=== PATIENT | female | born 1975 | race Caucasian/White ===

== ENCOUNTER 2016-09-16 23:50 | Emergency (ER) | payer OTHER, BC ==
[2016-09-17 00:38] VITALS: BP 130/87; PULSE 88; TEMP 98.4
[2016-09-17] MEDS ORDERED: METHOCARBAMOL 500 MG TABLET PO ONE (01:08)
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
[2016-09-17] MEDS ORDERED: IBUPROFEN 600 MG TABLET (FP) PO ONE ×2 (01:09→01:39)
== END 2016-09-17 01:49 | disposition home or self-care (01) ==
LOC: JER 23:50
DX: S16.1XXA Strain of muscle, fascia and tendon at neck level, initial encounter (principal); V43.52XA Car driver injured in collision with other type car in traffic accident, initial encounter; Y92.414 Local residential or business street as the place of occurrence of the external cause; Y93.89 Activity, other specified; Y99.9 Unspecified external cause status
CPT/HCPCS: 99283-25